=== PATIENT | male | born 1960 | race Caucasian/White ===

== ENCOUNTER → 2018-02-22 11:21 | Outpatient (CLI) | payer OTHER, SELFPAY ==
[2018-02-22 14:13] LABS: AST(SGOT) 23 U/L (15-37); Alanine Aminotransfer ALT/SGPT 46 U/L (16-61); Anion Gap 9 (5-15); BUN 14 mg/dL (7-18); BUN/Creat Ratio 14.3 RATIO (10-20); Chloride 106 mmol/L (98-107); Cholesterol 193 mg/dL (200); Creatinine, Serum 0.98 mg/dL (0.70-1.30); EST Glomerular Filtration Rate 83 mL/min (>60); Est Glom Filt Rate - Afr Amer 101 mL/min (>60); Glucose 90 mg/dL (74-106); High Density Lipoprotein 39 mg/dL; PSA,Total - Annual Screen 2.69 ng/mL (0.00-4.00); Potassium 4.6 mmol/L (3.5-5.1); Sodium Level 142 mmol/L (136-145); Triglycerides 130 mg/dL; Very Low Density Lipoprotein 26 mg/dL (5-40)
== END ==
PROVIDERS: Family Provider Family Medicine; PCP Family Medicine; Visit Provider Family Medicine
DX: Z00.00 Encounter for general adult medical examination without abnormal findings (principal); E78.5 Hyperlipidemia, unspecified; E16.2 Hypoglycemia, unspecified; Z12.5 Encounter for screening for malignant neoplasm of prostate
CPT/HCPCS: 36415; 80048; 80061; 84153; 84450; 84460; G0103

== ENCOUNTER → 2019-03-08 | Outpatient (CLI) | payer OTHER, SELFPAY ==
[2019-03-08 14:49] LABS: AST(SGOT) 25 U/L (15-37); Alanine Aminotransfer ALT/SGPT 38 U/L (16-61); Cholesterol 156 mg/dL (200); High Density Lipoprotein 37 mg/dL; PSA,Total - Annual Screen 2.18 ng/mL (0.00-4.00); Triglycerides 102 mg/dL; Very Low Density Lipoprotein 20 mg/dL (5-40)
== END | disposition home or self-care (01) ==
LOC: MFPLAB 11:23
PROVIDERS: Family Provider Family Medicine; PCP Family Medicine; Referring Provider Family Medicine; Visit Provider Family Medicine
DX: Z00.00 Encounter for general adult medical examination without abnormal findings (principal); E78.5 Hyperlipidemia, unspecified; Z12.5 Encounter for screening for malignant neoplasm of prostate
CPT/HCPCS: 36415; 80061; 84153; 84450; 84460; G0103

== ENCOUNTER → 2020-03-02 09:52 | Outpatient (CLI) | payer OTHER, SELFPAY ==
[2020-03-02 12:30] LABS: AST(SGOT) 27 U/L (15-37); Alanine Aminotransfer ALT/SGPT 37 U/L (16-61); Anion Gap 3 (5-15); BUN 18 mg/dL (7-18); BUN/Creat Ratio 15.8 RATIO (10-20); Calcium,Total 9.1 mg/dL (8.5-10.1); Chloride 110 mmol/L (98-107); Cholesterol 120 mg/dL (200); Creatinine, Serum 1.14 mg/dL (0.70-1.30); EST Glomerular Filtration Rate 69 mL/min (>60); Est Glom Filt Rate - Afr Amer 84 mL/min (>60); Glucose 85 mg/dL (74-106); High Density Lipoprotein 41 mg/dL; Potassium 4.1 mmol/L (3.5-5.1); Sodium Level 139 mmol/L (136-145); Triglycerides 82 mg/dL; Very Low Density Lipoprotein 16 mg/dL (5-40)
== END ==
PROVIDERS: PCP Family Medicine; Referring Provider Family Medicine; Visit Provider Family Medicine
DX: E78.5 Hyperlipidemia, unspecified (principal); E66.9 Obesity, unspecified
CPT/HCPCS: 36415; 80048; 80061; 84450; 84460

== ENCOUNTER → 2020-03-09 08:54 | Outpatient (CLI) | payer OTHER, SELFPAY ==
[2020-03-09 10:13] LABS: PSA,Total - Annual Screen 2.34 ng/mL (0.00-4.00)
== END ==
PROVIDERS: PCP Family Medicine; Referring Provider Family Medicine; Visit Provider Family Medicine
DX: Z12.5 Encounter for screening for malignant neoplasm of prostate (principal)
CPT/HCPCS: 36415; 84153; G0103

== ENCOUNTER 2020-07-10 15:59 | Outpatient (RCR) | payer MEDICARE, SELFPAY ==
[2020-07-10] MEDS: COVID-19 VACC, MRNA(PFIZER)/PF 30 MCG/0.3 ML SYRINGE IM (17:13)
[2020-07-31] MEDS: COVID-19 VACC, MRNA(PFIZER)/PF 30 MCG/0.3 ML SYRINGE IM (17:01)
== END 2020-10-02 23:59 ==
LOC: IMMUN 15:59
PROVIDERS: PCP Family Medicine; Visit Provider Family Medicine
DX: Z23 Encounter for immunization (principal)
CPT/HCPCS: 0001A; 0002A; 91300

== ENCOUNTER → 2021-03-04 16:08 | Outpatient (CLI) | payer OTHER, SELFPAY ==
[2021-03-04 18:10] LABS: AST(SGOT) 27 U/L (15-37); Alanine Aminotransfer ALT/SGPT 37 U/L (16-61); Cholesterol 145 mg/dL (200); High Density Lipoprotein 41 mg/dL; Triglycerides 84 mg/dL; Very Low Density Lipoprotein 17 mg/dL (5-40)
== END ==
PROVIDERS: PCP Family Medicine; Visit Provider Family Medicine
DX: E78.5 Hyperlipidemia, unspecified (principal)
CPT/HCPCS: 36415; 80061; 84450; 84460

== ENCOUNTER → 2022-03-07 | Outpatient (CLI) | payer OTHER, SELFPAY ==
[2022-03-07 18:06] LABS: AST(SGOT) 13 U/L (15-37); Alanine Aminotransfer ALT/SGPT 26 U/L (16-61); Cholesterol 135 mg/dL (200); High Density Lipoprotein 40 mg/dL; PSA,Total - Annual Screen 2.33 ng/mL (0.00-4.00); Triglycerides 88 mg/dL; Very Low Density Lipoprotein 18 mg/dL (5-40)
== END | disposition home or self-care (01) ==
LOC: MFPLAB 15:45
PROVIDERS: PCP Family Medicine; Referring Provider Family Medicine; Visit Provider Family Medicine
DX: E78.5 Hyperlipidemia, unspecified (principal); Z12.5 Encounter for screening for malignant neoplasm of prostate
CPT/HCPCS: 36415; 80061; 84153; 84450; 84460; G0103

== ENCOUNTER → 2023-03-03 | Outpatient (CLI) | payer OTHER, SELFPAY ==
[2023-03-03 18:07] LABS: AST(SGOT) 26 U/L (15-37); Alanine Aminotransfer ALT/SGPT 40 U/L (16-61); Cholesterol 166 mg/dL (200); High Density Lipoprotein 38 mg/dL; PSA,Total - Annual Screen 3.28 ng/mL (0.00-4.00); Triglycerides 99 mg/dL; Very Low Density Lipoprotein 20 mg/dL (5-40)
== END | disposition home or self-care (01) ==
LOC: MFPLAB 16:09
PROVIDERS: PCP Family Medicine; Visit Provider Family Medicine
DX: E78.5 Hyperlipidemia, unspecified (principal); Z12.5 Encounter for screening for malignant neoplasm of prostate
CPT/HCPCS: 36415; 80061; 84153; 84450; 84460; G0103

== ENCOUNTER → 2023-03-27 | Outpatient (CLI) | payer OTHER, SELFPAY | END | disposition home or self-care (01) | LOC: LABSPEC 15:58 | PROVIDERS: PCP Family Medicine; Referring Provider Surgery; Visit Provider Surgery | DX: Z01.818 Encounter for other preprocedural examination (principal) | CPT/HCPCS: 87081 ==

== ENCOUNTER 2023-05-08 08:00 | Outpatient (RCR) | payer OTHER, SELFPAY ==
--- NOTE | 2023-03-13 06:58 | HP.PTEVAL ---
Patient's Visit Information Visit Information Visit Information: SUMAN PIERSON is a 63 year old M referred to Physical Therapy by Dr. Norma Díaz MD with a diagnosis of . Date of Evaluation: Physical Therapist: Mojgan Doss PT, Cert MDT Anticipated Interventions Text: Thank you for the opportunity to evaluate your patient. For Medicare and Medicare HMO plans, please review the plan of care and approve it. It will need to be FAXED BACK to us at [phone] for Medicare purposes. For Medicare only, by signing this I certify the plan of care. Please let me know if there are questions or concerns regarding this plan of care. Physician Signature: Date:
--- NOTE | 2023-03-13 09:31 | HP.PTEVAL ---
Patient's Visit Information Visit Information Visit Information: SUMAN PIERSON is a 63 year old M referred to Physical Therapy by Dr. Norma Díaz MD with a diagnosis of Plantar Fasciitis. Date of Evaluation: 03/13/23 Physical Therapist: Mojgan Doss, PT, Cert MDT Visit Plan Frequency: 2-3x /Week Duration: 4-6 Weeks Plan: DECREASE PAIN AND INFLAMMATION WITH ICE AND US (50% 1.3 W/CM2). HS, CALF AND PLANTAR FASCIA STRETCHING WITH THER EX, JOINT MOBILIZATION AND STM TO DECREASE STRESS ON TISSUE. BALANCE AND STRENGTHENING EX'S TO RESTORE NORMAL MECHANICS OF L FOOT AND LEG. 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 L CALF PAIN, CRAMPS AND SPASMS. L HEEL NUMBNESS. Present since: NOV 2021 Pain Scale: WORST 7/10, LEAST 1/10 Currently: 2/10 Is it getting better, worse or staying the same: STAYING THE SAME Commenced as a result of: ACHILLES TENDON SURGERY - INACTIVE FOR MONTHS Symptoms at onset: HEEL PAIN Worse: WALKING ON HARD FLOORS/SURFACES, STANDING AND WORKING ON CONCRETE FLOORS, INITIATING GAIT IN AM AND AFTER SITTING. Better: WALKING ON SOFTER SURFACES, GETTING OFF OF IT AND STRETCHING IT. GEL CUPS, CERTAIN SHOES. (OTC AND CUSTOM ORTHOTICS HAVE NOT HELPED MUCH). Disturbed sleep: SOMETIMES Previous history/Previous treatment: NOV 2021 ACHILLES TENON SURGERY - TORE IT PULLING TREES. NO PT/REHAB AFTER SURGERY. WALKING BOOT, KNEE WALKER, CRUTCHES, ECT UNTIL ABOUT FEB 2023 (ABOUT 4 MONTHS). FOR ABOUT A YEAR PATIENT HAS BEEN DEALING WITH PAIN AND TRYING TO RECOVER. THAT IS WHEN HE NOTICED THE PAIN IN HIS HEEL. DR. HAYS DID THE SURGERY AND THEN DX'D HIM WITH PLANTAR FASCIITIS. Treatment this episode: HEEL CUPS AND PT REFERRAL Gait: Bowel or Bladder Dysfunction: Accidents: NO Unexplained weight loss: NO Imaging: NONE RECENT BUT DID HAVE PMH/Recent major surgery: HIGH CHOLESTEROL OTHER: HAD TO USE A SHOWER CHAIR TO SHOWER UNTIL ABOUT 2 MONTHS AGO AND THEN ABLE TO TRANSITION TO SHOWER SHOES TO TOLERATE STANDING. Objective Objective: THIS PATIENT AMBULATES INDEP'LY INTO PT WITH FAIR CADANCE AND A MILD LIMP ON THE L LE WITHOUT ANY AD'S OR LOB AND DECREASED HEEL STRIKE L LE. HE IS ABLE TO TRANSFER INDEP'LY FROM SIT TO STAND WITHOUT UE ASSIST. HE STANDS WITH ANTONIETTA FOOT PES CAVUS L > R . HE HAS VISIBLE L CALF ATROPHY. R LE STRENGTH AND ROM IS WFL. HE HAS MILD L CALF TIGHTNESS BUT OVER-ALL L ANKLE ROM IS GROSSLY SYMMETRICAL TO RIGHT. ANTONIETTA HS TIGHTNESS. L LE STRENGTH: HIP 4/5, KNEE 4/5, ANKLE 4/5, EHL 4/5. PALPATION: TENDERNESS WITH PALPATION OF ENTIRE L HEEL REGION BUT OTHERWISE INTO ARCH BUT OTHERWISE THE L FOOT IS NOT TENDER. TREATMENT: PATIENT WAS ENCOURAGED TO FOLLOW THROUGH WITH ROLLING FOOT OVER WATER BOTTLE OF ICE AT DIRECTED BY DR. DÍAZ AND ALSO INSTRUCTED IN REPEATED CALF STRETCHING X 10 TO 20 REPS EVER 1-2 HOURS THROUGHOUT THE DAY TOLERATED. PATIENT DEMONSTRATED/COMMUNICATED A GOOD UNDERSTANDING. Balance/Special Test Scores Lower Extremity Functional Score: 50 Goals Goal 1:: PATIENT WILL REPORT 50% DECREASED PAIN WITH WORK AND RECREATIONAL ACTIVITIES Goal Time Frame: 4-6 Weeks Goal 2:: PATIENTS LEFS SCORE WILL IMPROVE BY 10 POINTS TO SHOW IMPROVEMENT TOWARDS PLOF Goal Time Frame: 4-6 Weeks Goal 3:: PATIENT WILL HAVE INCREASED L LE STRENGTH TO 5/5 OF ALL EFFECTED MUSCULATURE. Goal Time Frame: 4-6 Weeks Goal 4:: PATIENT WILL BE ABLE TO STAND AND WALK FOR AT LEAST 60 MIN WITHOUT > 2/10 PAIN/NEEDING TO DONIS DOWN FOR INCREASED WORK AND RECREATIONAL TOLERANCE. Goal Time Frame: 4-6 Weeks Goal 5:: PATIENT WILL BE INDEP WITH AN APPROPRIATE HEP FOR CONTINUED IMPROVEMENT ONCE FORMAL PHYSICAL THERAPY CONCLUDES. Goal Time Frame: 4-6 Weeks Rehabilitation Potential Physical Therapy Diagnosis: L CALF AND HEEL PAIN. L ANKLE WEAKNESS. LLE STIFFNESS. IMPAIRED GAIT AND WEIGHT BEARING ACTIVITIES. Rehabilitation Potential: Good Anticipated Interventions Patient/Client Instruction: Educate patient on: Condition, Plan of Care and Risk Factors For the Purpose of:: To improve self management Therapeutic Exercise to Include: Strength training, Balance training, Flexibilty training, Gait and locomotor training and Neuromotor development For the Purpose of:: To decrease pain, To increase ROM, To improve muscle performance and motor function, To increase tolerance to activity/condition/position, To improve ability of physical actions for home/community/work/leisure and To improve gait and locomotor functions Manual Therapy Techniques to Include: Mobilization and Soft tissue mobilization For the Purpose of:: To decrease pain, To improve nutrient delivery to tissue and To decrease soft tissue restriction Cryotherapy (ice pack, ice massage): Yes Ultrasound (thermal/non thermal): Yes For the Purpose of:: To decrease pain and To decrease swelling/inflammation Text: Thank you for the opportunity to evaluate your patient. For Medicare and Medicare HMO plans, please review the plan of care and approve it. It will need to be FAXED BACK to us at [phone] for Medicare purposes. For Medicare only, by signing this I certify the plan of care. Please let me know if there are questions or concerns regarding this plan of care. Physician Signature: Date:
--- NOTE | 2023-04-10 16:50 | HP.PTREVAL ---
Re-Evaluation Intro: Dr. Norma íDaz MD, It has been my pleasure to treat SUMAN PIERSON over the last 9 visits for Left Plantar Fasciitis. Please see the progress note below for an update on the physical therapy plan of care! Subjective Subjective: I FEEL A LOT BETTER. THE PAIN HAS GONE DOWN IMMENSELY. NOW I CAN KEEP GOING AT THE END OF THE WORK DAY AND BEFORE I COULDN'T. PATIENT STATES HE HAS LESS PAIN, MORE FLEXIBILITY AND THE CRAMPING IS GONE. PATIENT REPORTS HE HAS TO GET OUT OF THE HABIT OF FAVORING IT BECAUSE IT DOESN'T HURT - IT'S JUST A HABIT. PATIENT REPORTS HE IS STILL STIFF IN THE MORNINGS BUT IT STRETCHES OUT AFTER ABOUT 5 TO 10 MINUTES. GETTING UP TO 2/10 PAIN AT WORK EVERY NOW AND AGAIN. PATIENT REPORTS HE CAN WALK MORE THAN AN HOUR NOW AND HE GETS TIRED BUT IT DOESN'T HAVE ANYTHING TO DO WITH HIS FOOT - HE STATES HE JUST HAS TO GET BACK IN SHAPE. STILL GETS STIFF AFTER PROLONGED SITTING TOO. Objective Objective/Function: PATIENT WAS SEEN TODAY FOR RE-ASSESSMENT OF PROGRESS TOWARD THE SET PT GOALS AND THE NEED FOR FURTHER PHYSICAL THERAPY VS READINESS FOR DISCHARGE. PATIENT IS MAKING GREAT PROGRESS WITH PT BUT CONTINUES TO HAVE SIGNIFICANT GAIT DEVIATION, DECREASED L FOOT/ANKLE PROPRIOCEPTION AND WEAKNESS. PATIENT IS UNABLE TO SLS ON THE LLE WITHOUT UE ASSIST WITH GOOD BALANCE AND HE IS UNABLE TO DO A SLS HEEL RAISE ON THE LEFT. HE IS A GOOD CANDIDATE TO CONTINUE PT FOR CORRECTIVE EX AND PROPRIOCEPTIVE TRAINING ALONG WITH MODALITIES NEEDED. HE IS AGREEABLE WITH THIS POC DECREASING TO 2 TIMES A WK AND CONTINUING TO PROGRESS HEP. Plan Plan Plan: CONT PT 2X'S A WK X 4-6 WKS FOR MODALITIS NEEDED. FOCUS ON NORMALIZING GAIT. HS, CALF, ANKLE AND PLANTAR FASCIA STRETCHING WITH THER EX, JOINT MOBILIZATION AND STM TO DECREASE STRESS ON TISSUE. BALANCE, PROPRIOCEPTION AND STRENGTHENING EX'S TO RESTORE NORMAL MECHANICS OF L LEG, FOOT AND ANKLE. Balance/Gait/Functional tests Balance/Special Test Scores Lower Extremity Functional Score: 50 Goals Goals Goal 1:: PATIENT WILL REPORT 50% DECREASED PAIN WITH WORK AND RECREATIONAL ACTIVITIES Goal Time Frame: 4-6 Weeks Goal Progress: Goal Met Goal 2:: PATIENTS LEFS SCORE WILL IMPROVE BY 10 POINTS TO SHOW IMPROVEMENT TOWARDS PLOF Goal Time Frame: 4-6 Weeks Goal Progress: Goal Met Goal 3:: PATIENT WILL HAVE INCREASED L LE STRENGTH TO 5/5 OF ALL EFFECTED MUSCULATURE. Goal Time Frame: 4-6 Weeks Goal Progress: Goal Met Goal 4:: PATIENT WILL BE ABLE TO STAND AND WALK FOR AT LEAST 60 MIN WITHOUT > 2/10 PAIN/NEEDING TO DONIS DOWN FOR INCREASED WORK AND RECREATIONAL TOLERANCE. Goal Time Frame: 4-6 Weeks Goal Progress: Goal Met Goal 5:: PATIENT WILL BE INDEP WITH AN APPROPRIATE HEP FOR CONTINUED IMPROVEMENT ONCE FORMAL PHYSICAL THERAPY CONCLUDES. Goal Time Frame: 4-6 Weeks Goal Progress: Goal Met Goal 6:: NORMALIZE GAIT PATTERN Goal Time Frame: 4-6 Weeks Anticipated Interventions Anticipated Interventions Patient/Client Instruction: Educate patient on: Condition, Plan of Care and Risk Factors For the Purpose of:: To improve self management Therapeutic Exercise to Include: Strength training, Balance training, Flexibilty training, Gait and locomotor training and Neuromotor development For the Purpose of:: To decrease pain, To increase ROM, To improve muscle performance and motor function, To increase tolerance to activity/condition/position, To improve ability of physical actions for home/community/work/leisure and To improve gait and locomotor functions Manual Therapy Techniques to Include: Mobilization and Soft tissue mobilization For the Purpose of:: To decrease pain, To improve nutrient delivery to tissue and To decrease soft tissue restriction Cryotherapy (ice pack, ice massage): Yes Ultrasound (thermal/non thermal): Yes For the Purpose of:: To decrease pain and To decrease swelling/inflammation Re-Evaluation Ending Re-evaluation ending: Please do not hesitate to contact me at [phone] by phone or if you have questions or concerns regarding this new plan of care! Sincerely, Mojgan Doss, PT, Cert MDT
--- NOTE | 2023-05-08 12:23 | HP.PTDCSUM ---
Discharge Summary D/C summary: It has been my pleasure to treat SUMAN PIERSON referred by Dr. Norma Díaz MD, with the diagnosis of Left Plantar Fasciitis for a total of 17 visit(s). Discharge Date: 05/08/23 Please see the following information for a summary of their discharge status. Subjective Subjective: MY PAIN LEVEL IS ALMOST DOWN TO NOTHING. PATIENT REPORTS NOW HE FEELS LIKE HE CAN GET BACK INTO WALKING FOR EXERCISE AND GET BACK IN SHAPE BECAUSE HE'S NOT IN PAIN. Pain Left Heel: Pain Intensity (Out of 10): 0 Overall Improvement % Improvement: 90 Objective Objective/Function: PATIENT WAS SEEN TODAY FOR RE-ASSESSMENT OF PROGRESS TOWARD THE SET PT GOALS AND THE NEED FOR FURTHER PHYSICAL THERAPY VS READINESS FOR DISCHARGE. HE HAS MADE GREAT PROGRESS WITH PT AND HIS GAIT IS STARTING TO NORMALIZE BUT HE STILL HAS SIGNIFICANT L CALF WEAKNESS. HE IS UNABLE TO RAISE HIS L HEEL IN SLS AT ALL FOR ONE REP WITH KNEE BENT OR STRAIGHT BUT IS ABLE TO FULLY PLANTAR FLEX HIS FOOT AGAINST GRB AND PARTIALLY PF AGAINST BTB WITH KNEE BENT AND STRAIGHT. L KNEE FLEXIONG GRADED 4/5. INSTRUCTED PATIENT IN HOME GTB PF WITH KNEE BENT AND STRAIGHT 3X10 ONCE A DAY WORKING UP TO BTB 3X10 ONCE A DAY AND SAME WITH SEATED L KNEE FLEXION. PATIENT IS CONSIDERING HP MEMBERSHIP FOR CONTINUED STRENGTHENIGN. EXPLAINED IMPORTANCE OF PF STRENGTH IN GAIT MECHANICS AND HOW WEAKNESS CAN EFFECT KNEE, HIP AND BACK. PATIENT COMMUNICATED A GOOD UNDERSTANDING AND IS INDEP WITH HEP. PATIENT DEMO'S INDEP GAIT UP AND DOWN STEPS RECIP WITHOUT HR WITH MILD DEVIATION. Goals Goal 1:: PATIENT WILL REPORT 50% DECREASED PAIN WITH WORK AND RECREATIONAL ACTIVITIES Goal Progress: Goal Met Goal 2:: PATIENTS LEFS SCORE WILL IMPROVE BY 10 POINTS TO SHOW IMPROVEMENT TOWARDS PLOF Goal Progress: Goal Met Goal 3:: PATIENT WILL HAVE INCREASED L LE STRENGTH TO 5/5 OF ALL EFFECTED MUSCULATURE. Goal Progress: Goal Met Goal 4:: PATIENT WILL BE ABLE TO STAND AND WALK FOR AT LEAST 60 MIN WITHOUT > 2/10 PAIN/NEEDING TO DONIS DOWN FOR INCREASED WORK AND RECREATIONAL TOLERANCE. Goal Progress: Goal Met Goal 5:: PATIENT WILL BE INDEP WITH AN APPROPRIATE HEP FOR CONTINUED IMPROVEMENT ONCE FORMAL PHYSICAL THERAPY CONCLUDES. Goal Progress: Goal Met Goal 6:: NORMALIZE GAIT PATTERN Goal Progress: Progressing Plan Plan: D/C TO INDEP EX. PATIENT IS AGREEABLE. D/C Information d/c sentence: If there are questions or concerns regarding this patient's physical therapy, please feel free to call me at [phone]. Thank you for the referral of this patient. Sincerely, Mojgan Doss, PT, Cert MDT Balance/Gait/Functional tests Balance/Special Test Scores Lower Extremity Functional Score: 62 Improvement % Improvement: 90
== END 2023-05-08 19:00 | disposition home or self-care (01) ==
LOC: PT 08:00
PROVIDERS: PCP Family Medicine; Referring Provider Family Medicine; Visit Provider Family Medicine
DX: M72.2 Plantar fascial fibromatosis (principal)
CPT/HCPCS: 97035; 97110; 97140; 97162; 97164; 97530

== ENCOUNTER 2023-05-11 10:58 | Day surgery (SDC) | payer OTHER, SELFPAY ==
[2023-05-11] VITALS (8 sets, daily range): BP systolic 137–167; BP diastolic 70–108; PULSE 64–85; RESP 16–18; TEMP 36.1–37.1; O2SAT 93–98; BMI 33.3
[2023-05-11] MEDS: Lactated Ringers 1,000 ML 15 ML IV (11:38)
--- NOTE | 2023-05-11 12:01 | PCM.OPRPT ---
Report of Operation Date of Procedure: 05/11/23 Pre-Operative Diagnosis: Umbilical hernia Post-Operative Diagnosis: Fat?incarcerated umbilical hernia Surgery/Procedure Performed:: Robot-assisted transabdominal preperitoneal hernia repair with mesh Description of Surgical Findings:: ? 2 cm hernia defect with incarcerated fat Surgeon: London Holliday steel plate caulker: Adelita Vázquez Type of Anesthesia: General/Supplemental Anesthesiologist: Jeramie Mccann Specimen's removed: None Estimated Blood Loss (mL): 10 Description of Procedure: After appropriate identification in the preoperative holding area, the patient was brought to the operating room suite where he was positioned supine the operating table. Preoperative antibiotics were administered. Patient was then induced with a general anesthetic. Patient's abdomen was prepped and draped in the usual sterile fashion. A formal timeout followed to confirm patient and procedure. Procedure was begun with a Veress entry at Castillo's point. Once the set point pressure was reached, this Veress needle was exchanged for an optical trocar and an optical entry was made in this location. Laparoscopic investigation revealed no inadvertent injury to the viscera below. 2 additional 8 mm robotic trochars were placed along the abdominal wall laterally taking care to avoid the bony prominences of the costal margin and the ASIS. A transversus abdominis plane block was created with a mixture of saline, Exparel, and Marcaine using a total of 78 mL mL under laparoscopic vision as these ports were placed. The robot was then brought in and docked in standard fashion. Robotically a peritoneal flap was raised approximately 2 cm medial from my trocars and carried this away towards the contralateral abdominal wall. Great care was taken to lower the peritoneum off of the posterior rectus sheath and avoid any rents in the peritoneal flap. Perforating vessels were sealed with bipolar energy to maintain hemostasis as this flap dissection proceeded. I then addressed the hernia directly by opening the scar tissue about the hernia sac and carefully applying manual traction downward until the hernia was fully reduced. The flap was then further dissected laterally until it appeared we had adequate width. The hernia defect was measured at 2 cm in diameter and I did confirm we had at least 5 cm of clearance to the remaining intact peritoneum with our dissected flap opening. The hernia defect was then closed with a #1 stratafix suture by running the fascial defect closed and then running the suture back upon itself. Next a 10 x 10 (trimmed) Ventralight ST mesh was introduced into the peritoneum and a 3-0 V-Loc suture was used to chandelier the mesh. This V-Loc suture was then run towards the operating side of the opening and then circumferentially about the mesh with a total of 3X 3-0 V-Loc sutures. Lastly the peritoneum was closed with 3-0 V-Loc suture. A small peritoneal rent was repaired with an interrupted 3-0 Vicryl suture in a [id number] fashion and patient's adjacent hernia sac was tacked in front of this opening for further reinforcement. The robot was then undocked and the trocars were removed. Additional local anesthetic was instilled and the port sites were closed with interrupted 4-0 Monocryl in subcuticular fashion. Steri-Strips and OpSite dressings were applied. Patient was transferred to PACU for ongoing care. Grafts/Implants Used: Ventralight ST mesh, ref [id number], lot [id number] Complications None Admit VTE Documentation VTE Mechan Device Prophylaxis: SCD's Procedures Digestive 40xxx-49xxx: 98011 RPR AA HRN 1ST < 3 CM RDC
--- NOTE | 2023-05-11 12:01 | PCM.HP.BLA ---
History and Physical Date of Admission: 05/11/23 Date of Service: 03/27/23 MR#: [id number] Acct: [id number] Name: SUMAN PIERSON Rep #: [id number] : [id number] Provider: Dr. London Holliday MD Age/Sex: 63/M Location: [facility] Status: Signed Intake Vital Signs 03/27/2313:26 Height 5 ft 7 in Weight: 232 lb 2 oz BMI 36.3 BP 145/90 H Blood Pressure Location Rt brachial Position Sitting Respiration 18 Pulse 62 Pulse Source Monitor Temp 97.6 F L Temp Source Temporal Pulse Oximetry (%) 96 Oxygen Delivery Method room air Intake Visit Reasons: UMBILICAL HERNIA Chief Complaint: umbilical hernia Machine Grinder Required: No Is patient in pain?: No Allergies No Known Allergies Allergy (Unverified 03/27/23 13:28) Medications glucosamine sulfate 500 mg tablet (Glucosamine) 500 mg PO DAILY 03/27/23 [History Confirmed 03/27/23] simvastatin 20 mg tablet mg PO 03/27/23 [History Confirmed 03/27/23] ubidecarenone-omega 3-vit E 25 mg-150 (90-60) mg-200 unit capsule (Co [id number] E-Fish Oil) 1 cap PO DAILY 03/27/23 [History Confirmed 03/27/23] PFSH Surgical History (Updated 03/27/23 @ 13:26 by Britany Mccurdy LPN) S/P Achilles tendon repair S/P vasectomy Social History (Updated 03/27/23 @ 13:26 by Britany Mccurdy LPN) Smoking Status: Never smoker alcohol intake: current alcohol intake frequency: holidays/special occasions only substance use type: does not use HPI HPI HPI: Patient is a 63-year-old male who presents for evaluation of an umbilical hernia. This finding was first noticed by patient approximately 2 to 3 years ago. Patient is not able to recall how this occurred. He is referred from Dr. Norma Díaz. He shares that this issue is discussed that there are yearly exams, however, he does decided to proceed with surgical evaluation now as it has become unsightly and he is concerned about complication. To this latter point he does confirm some growth of the hernia as well as some discomfort when carrying things directly against the hernia. Other symptoms include: No change to his bowel habits (but he does admit to constipation as a lifelong problem). Patient has a personal history of smoking. Patient has no personal history of recurrent cutaneous infections including staph. Pertinent surgical history includes: Noncontributory ROS General General: Yes weight change (gain) Gastro Gastrointestinal: Yes abdominal pain Exam Const General: cooperative, comfortable and no acute distress Orientation: alert, awake and oriented x3 GI Other: No scars, nondistended, soft, visible herniation at the umbilicus. On palpation there is significant protrusion of fatty tissue (suspected omental tissue). This is easily reduced to the peritoneum to a fascial defect of approximately 2 cm Assessment and Plan Assessment and Plan (1) Umbilical hernia: Status: Chronic Comment: This is a 63-year-old male, with minimal past medical history, who presents for evaluation of a minimally symptomatic, but enlarging umbilical hernia. On exam, patient does have some discomfort from this hernia which is estimated at approximately 2 cm in diameter fascial defect. At this size, shared with patient that it is at risk for potential bowel involvement which could lead to either obstruction or bowel incarceration/strangulation. Therefore, I do recommend proceeding with operative repair sooner than later. I offered patient either open hernia repair with mesh placement or minimally invasive repair with mesh placement. I shared the pros and cons of each procedure and Mr. Pierson states that he does a fair amount of physical activity and wishes to have the most durable repair available. Upon hearing this declaration I have recommended that we proceed then with a minimally invasive hernia repair with mesh. Procedure was described in detail?including the postoperative expectation of no lifting greater than 10 pounds for 5 weeks?and patient expresses understanding. Additionally, I have informed him that I would like to obtain a nasal swab to assess for any staph colonization of the nares and shared the importance of this intervention. Plan: ? Schedule outpatient robot-assisted umbilical hernia repair with mesh placement via Deirdre approach ? MRSA screening H&P has been reviewed and patient denies any changes to his health history. He denies any questions related to today's procedure, but proceeded with reviewing procedure and post procedure expectations anyhow to be sure all terms were clearly communicated. Will now proceed to OR for planned robot-assisted umbilical hernia repair with mesh.
[2023-05-11] MEDS: Cefazolin 2 GM in 0.9% Normal Saline (100mL Bag) 100 ML IV (12:23)
[2023-05-11] MEDS: BUPIVACAINE LIPOSOME/PF 20 ML VIAL OPERA.SITE (15:21)
[2023-05-11] MEDS: Bupivacaine 0.25% 30 ML Vial (15:22)
[2023-05-11] MEDS: 0.9% Normal Saline (Pres. free 10 ML Vial (15:22)
--- NOTE | 2023-05-11 15:24 | DCINST_ITS ---
Discharge Instructions Diet Discharge Diet: No restrictions Activity Discharge Activity: May Not Drive (While taking narcotic pain medication) and May Shower May shower in (days): 2 Ice area for (Minutes): 20 Lifting Restrictions: No lifting greater than 10 pounds for the next 5 weeks Dressing / Incision Call your doctor if your incision/area has: Continuous Slow Oozing, Increased Pain/ Swelling, Increased Redness, Foul Smelling Discharge and Swelling at the incision site Call your doctor if you observe: Fever of 101 or Higher, Inability to urinate and Inability to have a bowel movement Change Dressing in: 2 days (Please leave Steri-Strips intact until they fall off spontaneously or are taken off at your follow-up visit) Remove Dressing in: 2 days Cleanse incision/area with: Soap & Water and Keep Dressing Clean & Dry Follow Up Care Please Follow Up With: London Holliday MD When: 1-2 weeks postop Test Results: Test results from this visit will be discussed in further detail at your follow- up appointment, if applicable. Discharge Plan Admission Primary Reason for Your Visit: Repair of umbilical hernia Attending Provider: London Holliday Primary Care Provider: Norma Díaz Discharge Orders/Prescriptions Prescriptions: New oxycodone 5 mg tablet 5 mg PO Q6H PRN (Reason: pain) 5 Days Qty: 10 0RF Continued simvastatin 20 mg tablet 20 mg PO QHS Co [id number]-[id number] E-Fish Oil 25-150-200 mg-mg-unit capsule 1 cap PO DAILY glucosamine sulfate [Glucosamine] 500 mg tablet 500 mg PO DAILY Rx Instructions: administer with a meal Referrals / Follow Up: Norma Díaz MD [Primary Care Provider] - Disposition Disposition (needs filled in before D/C Order can be placed): Home, Self Care
== END 2023-05-11 17:41 | disposition home or self-care (01) ==
LOC: SDC 11:03 → AC 11:03
PROVIDERS: PCP Family Medicine; Referring Provider Surgery; Visit Provider Surgery
PROC: (CPT 49592; principal; 2023-05-11 12:05)
DX: K42.9 Umbilical hernia without obstruction or gangrene (principal); E78.00 Pure hypercholesterolemia, unspecified; Z79.899 Other long term (current) drug therapy
CPT/HCPCS: 49592; S2900; 00840; 93005; J7120; C1781; J2405; J3490

== ENCOUNTER → 2024-02-08 | Outpatient (CLI) | payer OTHER, SELFPAY ==
[2024-02-08 13:20] LABS: AST(SGOT) 24 U/L (15-37); Alanine Aminotransfer ALT/SGPT 37 U/L (16-61); Cholesterol 175 mg/dL (200); High Density Lipoprotein 40 mg/dL; Triglycerides 125 mg/dL; Very Low Density Lipoprotein 25 mg/dL (5-40)
== END | disposition home or self-care (01) ==
LOC: MFPLAB 09:57
PROVIDERS: PCP Family Medicine; Visit Provider Family Medicine
DX: E78.5 Hyperlipidemia, unspecified (principal); Z12.5 Encounter for screening for malignant neoplasm of prostate
CPT/HCPCS: 36415; 80061; 84443; 84450; 84460

== ENCOUNTER → 2024-02-19 | Outpatient (CLI) | payer OTHER, SELFPAY ==
--- NOTE | 2024-02-19 12:49 | RAD_ITS ---
EXAM: XR RIGHT FOOT COMPLETE, 3 OR MORE VIEWS CLINICAL INDICATION: gout TECHNIQUE: Frontal, lateral and oblique views of the right foot. COMPARISON: January 15, 2012. FINDINGS: BONES/JOINTS: Unremarkable with the exception of possibly slight stable narrowing of the first MTP joint. No acute fracture. No subluxation. No periarticular cortical erosions Normal alignment. Preservation of the joint space. No sclerotic or destructive changes observed. SOFT TISSUES: Unremarkable. No soft tissue swelling or gas. No radiopaque foreign body. RAD/Foot min 3 Views IMPRESSION: Negative right foot x-rays. Electronically Signed: Delia Del Real MD at 2:33 EDT ,
[2024-02-19 15:31] LABS: ALB/GLOB Ratio 1.1 RATIO (0.9-2.4); AST(SGOT) 19 U/L (15-37); Alanine Aminotransfer ALT/SGPT 38 U/L (16-61); Alkaline Phosphatase 76 U/L (45-117); Anion Gap 3 (5-15); BUN 21 mg/dL (7-18); BUN/Creat Ratio 19.4 RATIO (10-20); Calcium,Total 9.6 mg/dL (8.5-10.1); Chloride 108 mmol/L (98-107); Creatinine, Serum 1.08 mg/dL (0.70-1.30); EST Glomerular Filtration Rate 73 mL/min (>60); Est Glom Filt Rate - Afr Amer 88 mL/min (>60); Globulin 3.6 g/dL (2.2-4.2); Glucose 107 mg/dL (74-106); Potassium 4.3 mmol/L (3.5-5.1); Protein, Total 7.6 g/dL (6.4-8.2); Sodium Level 137 mmol/L (136-145); Uric Acid 6.5 mg/dL (3.5-7.2)
== END | disposition home or self-care (01) ==
PROVIDERS: PCP Family Medicine; Referring Provider Family Medicine; Visit Provider Family Medicine
DX: M10.9 Gout, unspecified (principal)
CPT/HCPCS: 36415; 73630; 80053; 84550

== ENCOUNTER → 2025-03-02 | Outpatient (CLI) | payer BC, SELFPAY ==
--- OUTSIDE RECORDS SUMMARY | 2025-03-02 16:35 | XMS RPT_ITS | CCD ---
Author Organization [facility] CliniSyal Care Team Providers Care Is/It Project Manager Name Role Phone NEHAL MIN, DR BALLESTEROS Primary Care Physician [phone] Medications Current Medications Medication Drug Class(es) Dates Sig (Normalized) Sig (Original) simvastatin 20 mg oral tablet (1 source) HMG-CoA Reductase Inhibitor Start: 04-04-2016 Zocor 20 mg oral tablet (NF) Dose : 20 mg = 1 tab(s), Oral, qHS, 0 Refill(s) Start Date: 04/04/16 Status: Ordered Vital Signs Date Time Vital Sign Value Performing Clinician Edin elliott 11-28-2021 08:45-0400 Diastolic Blood Pressure NBP 72 1 VALENTE SUPPAN DPM [facility] 11-28-2021 08:45-0400 Heart rate 66 /min VALENTE SUPPAN DPM [facility] 11-28-2021 08:45-0400 Systolic Blood Pressure NBP 111 1 VALENTE SUPPAN DPM [facility] 11-28-2021 08:40-0400 Diastolic Blood Pressure NBP 77 1 VALENTE SUPPAN DPM [facility] 11-28-2021 08:40-0400 Heart rate 61 /min VALENTE SUPPAN DPM [facility] 11-28-2021 08:40-0400 Systolic Blood Pressure NBP 104 1 VALENTE SUPPAN DPM [facility] 11-28-2021 08:35-0400 Diastolic Blood Pressure NBP 74 1 VALENTE SUPPAN DPM [facility] 11-28-2021 08:35-0400 Heart rate 65 /min VALENTE SUPPAN DPM [facility] 11-28-2021 08:35-0400 Systolic Blood Pressure NBP 105 1 VALENTE SUPPAN DPM [facility] 11-28-2021 08:25-0400 Respiratory rate 0 /min VALENTE SUPPAN DPM [facility] 11-28-2021 08:20-0400 Respiratory rate 13 /min VALENTE SUPPAN DPM [facility] 11-28-2021 08:15-0400 Respiratory rate 12 /min VALENTE SUPPAN DPM [facility] 11-28-2021 07:11-0400 Body height 170.2 cm VALENTE SUPPAN DPM [facility] 11-28-2021 06:53-0400 Body height 170.2 cm VALENTE SUPPAN DPM [facility] 11-28-2021 06:53-0400 Body temperature 97.16 [degF] VALENTE SUPPAN DPM [facility] 11-28-2021 06:53-0400 Body weight 98.5 kg VALENTE SUPPAN DPM [facility] 11-28-2021 06:53-0400 Diastolic blood pressure 87 mm[Hg] VALENTE SUPPAN DPM [facility] 11-28-2021 06:53-0400 Heart rate 72 /min VALENTE SUPPAN DPM [facility] 11-28-2021 06:53-0400 Systolic blood pressure 126 mm[Hg] VALENTE HAYS DPM [facility] Encounters Encounter Date Encounter Type Care Provider Facility Start: 11-28-2021 End: 11-28-2021 SAME DAY STAY VALENTE HAYS DPM [facility] Social History Date Type Detail Facility Tobacco smoking status Never smo ked tobacco (finding) [facility] Sex Assigned At Male [facility] Functional Status Date Assessment Result Facility 11-28-2021 Functional Status ice on [facility] 11-28-2021 Functional Status Maintained [facility] Mental Status Date Assessment Result Facility 11-28-2021 Mental Status Orientation Oriented x 4 [facility] 11-28-2021 Mental Status [facility] Evaluation + Plan note 11-28-2021 Note Date & Type Note Facility 11-28-2021 Evaluation + Plan note Extrac janna from: Title:Clinical Document Author:VALENTE HAYS PM Date:11/28/21 ONSET ADMISSION HISTORY AN D PHYSICIAL CHIEF COMPLAINT: HISTORY OF PRESENT ILLNESS: REVIEW OF SYSTEMS: ACTIVE PROBLEMS: No qualifying data available for Problems MEDICATIONS: Active Inpt Meds: cefOXitin Start: 11/28/21 6:24:00 EDT, Dose = 1 gram(s), IV Piggyback, PREOP pharm, Rate: 200 mL/hr, Infuse over: 30 minute(s), 0, 11/28/21 6:24:00 EDT Active PRN Meds: None One Time Meds: None Active IV Meds: Lactated Ringers Infusion 1,000 mL (LR 1,000 mL) Start: 11/28/21 6:24:00 EDT, Rate: 125 mL/hr, 11/28/21 6:24:00 EDT ALLERGIES: (1) [facility] FAMILY HISTORY: SOCIAL HISTORY: PHYSICAL EXAM: VITALS: [id number](kg) 11/28 06:5336.2126/[id number]--62.0L/m08 98.5 24 Hr Tmax: 36.2 at 11/28 06:53 36 Hr Tmax: 36.2 at 11/28 06:53 Vital Signs are the last 5 in the past 48 hours. Weights display the last 5 within 7 days. Initial Wt: 11/28 98.5 kg 217 lb Current Wt: 11/28 98.5 kg 217 lb GENERAL: HEENT: CARDIOVASCULAR: RESPIRATORY: ABDOMEN: EXREMETIES: NEUROLOGICAL: PSYCHIATRIC: LABS: No 36hr Lab Data DIAGNOSTICS: IMPRESSION: PLAN: History and Physical Update I have examined the patient; reviewed the H&P and there are no changes to the H&P unless noted below. [facility] Hospital Discharge instructions 11-28-2021 Note Date & Type Note Facility 11-28-2021 Hospital Discharg e instructions Patient Education 11/28/2021 08:47:09 Monitored Anesthesia Care, Care After Monitored Anesthesia Care, Care After These instructions provide you with information about caring for yourself after your procedure. Your health care provider may also give you more specific instructions. Your treatment has been planned according to current medical practices, but problems sometimes occur. Call your health care provider if you have any problems or questions after your procedure. What can I expect after the procedure? After your procedure, you may: Feel sleepy for several hours. Feel clumsy and have poor balance for several hours. Feel forgetful about what happened after the procedure. Have poor judgment for several hours. Feel nauseous or vomit. Have a sore throat if you had a breathing tube during the procedure. Follow these instructions at home: For at least 24 hours after the procedure: Have a responsible adult stay with you. It is important to have someone help care for you until you are awake and alert. Rest as needed. Do not: ?Participate in activities in which you could fall or become injured. ?Drive. ?Use heavy machinery. ?Drink alcohol. ?Take sleeping pills or medicines that cause drowsiness. ?Make important decisions or sign legal documents. ?Take care of children on your own. Eating and drinking Follow the diet that is recommended by your health care provider. If you vomit, drink water, juice, or soup when you can drink without vomiting. Make sure you have little or no nausea before eating solid foods. General instructions Take hhrd-mrq-hivwiqg and prescription medicines only as told by your health care provider. If you have sleep apnea, surgery and certain medicines can increase your risk for breathing problems. Follow instructions from your health care provider about wearing your sleep device: ?Anytime you are sleeping, including during daytime naps. ?While taking prescription pain medicines, sleeping medicines, or medicines that make you drowsy. If you smoke, do not smoke without supervision. Keep all follow-up visits as told by your health care provider. This is important. Contact a health care provider if: You keep feeling nauseous or you keep vomiting. You feel light-headed. You develop a rash. You have a fever. Get help right away if: You have trouble breathing. Summary For several hours after your procedure, you may feel sleepy and have poor judgment. Have a responsible adult stay with you for at least 24 hours or until you are awake and alert. This information is not intended to replace advice given to you by your health care provider. Make sure you discuss any questions you have with your health care provider. Document Released: 08/03/2016 Document Revised: 07/12/2018 Document Reviewed: 08/03/2016 [employer] Patient Education 2020 [employer]. 11/28/2021 08:47:01 Achilles Tendon Tear Repair, Care After Achilles Tendon Tear Repair, Care After This sheet gives you information about how to care for yourself after your procedure. Your health care provider may also give you more specific instructions. If you have problems or questions, contact your health care provider. What can I expect after the procedure? After the procedure, it is common to have: Numbness in your foot. This should go away within 24 hours. Pain. It may take 6 months before you can return to your regular activity level. However, complete recovery can take a year or longer. Follow these instructions at home: Medicines Take aiik-aiy-bztzomw and prescription medicines only as told by your health care provider. If you were prescribed an antibiotic medicine, take it as told by your health care provider. Do not stop taking the antibiotic even if your condition improves. Ask your health care provider if the medicine prescribed to you: ?Requires you to avoid driving or using heavy machinery. ?Can cause constipation. You may need to take these actions to prevent or treat constipation: ?Drink enough fluid to keep your urine pale yellow. ?Take lict-coh-wskuyby or prescription medicines. ?Eat foods that are high in fiber, such as beans, whole grains, and fresh fruits and vegetables. ?Limit foods that are high in fat and processed sugars, such as fried and sweet foods. If you have a splint or boot: Wear the splint or boot as told by your health care provider. Remove it only as told by your health care provider. Loosen it if your toes tingle, become numb, or turn cold and blue. Keep it clean and dry. If you have a cast: Do not put pressure on any part of the cast until it is fully hardened. This may take several hours. Do not stick anything inside the cast to scratch your skin. Doing that increases your risk of infection. Check the skin around the cast every day. Tell your health care provider about any concerns. You may put lotion on dry skin around the edges of the cast. Do not put lotion on the skin underneath the cast. Keep it clean and dry. Bathing Do not take baths, swim, or use a hot tub until your health care provider approves. Ask your health care provider if you may take showers. You may only be allowed to take sponge baths. If the splint, boot, or cast is not waterproof: ?Do not let it get wet. ?Cover it with a watertight covering when you take a bath or a shower. Incision care Follow instructions from your health care provider about how to take care of your incision. Make sure you: ?Wash your hands with soap and water before and after you change your bandage (dressing). If soap and water are not available, use hand line out man. ?Change your dressing as told by your health care provider. ?Leave stitches (sutures) or silvina in place. These skin closures may need to stay in place for 2 weeks or longer. If you have a removable splint or boot, check your incision area every day for signs of infection. Check for: ?More redness, swelling, or pain. ?Fluid or blood. ?Warmth. ?Pus or a bad smell. Managing pain, stiffness, and swelling If directed, put ice on the injured area. To do this: ?If you have a removable splint or boot, remove it as told by your health care provider. ?Put ice in a plastic bag. ?Place a towel between your skin and the bag or between your cast and the bag. ?Leave the ice on for 20 minutes, 2 3 times a day. Move your toes often to reduce stiffness and swelling. Raise (elevate) your leg above the level of your heart while you are sitting or lying down. Activity Do not walk on or put weight on your injured leg. Use crutches or another walking aid, such as a walking boot. Follow instructions from your health care provider on how to move your ankle and how much weight you can put on your leg. If you have a cast, boot, or splint, you should receive these instructions after it is removed. Follow your rehab plan. Do exercises as told by your health care provider or physical therapist. Do not return to physical activity or sports until you are cleared by your health care provider or physical therapist. General instructions Ask your health care provider when it is safe to drive if you have a splint, boot, or cast on your leg. See a physical therapist if directed by your health care provider. Do not use any products that contain nicotine or tobacco, such as cigarettes, e-cigarettes, and chewing tobacco. These can delay incision healing after surgery. If you need help quitting, ask your health care provider. Keep all follow-up visits as told by your health care provider. This is important. If you have a cast or splint, your health care provider will remove it about 2 weeks after surgery. If you have sutures, they will also be removed during this time. Contact a health care provider if: You have chills. You have any of these signs of infection: ?More redness, swelling, or pain around your incision. ?Fluid or blood coming from your incision. ?Warmth coming from your incision. ?Pus or a bad smell coming from your incision. ?A fever. Your pain medicine is not working. You have persistent numbness, tingling, or burning in your foot or toes. Your splint, boot, or cast feels too tight, even after loosening the splint or boot. You cannot wiggle your toes. You notice cracks or soft spots on your cast. Get help right away if: You have severe swelling, pain, or numbness that is getting worse. You are bleeding through your splint, boot, or cast. You have chest pain. You have trouble breathing. Summary After your procedure, it is common to have pain and numbness in your foot. Numbness should go away within 24 hours after surgery. If you have a splint or boot, loosen it if your toes tingle, become numb, or turn cold and blue. Keep the splint or boot clean and dry. If you have a cast, do not put pressure on it until it hardens. To avoid infections, do not stick objects under the cast to scratch the skin and do not put lotion under the cast. Keep the cast clean and dry. Follow instructions about caring for your incision, avoiding some activities, taking medicines, and keeping follow-up visits. This information is not intended to replace advice given to you by your health care provider. Make sure you discuss any questions you have with your health care provider. Document Released: 12/17/2004 Document Revised: 09/21/2019 Document Reviewed: 09/21/2019 [employer] Patient Education 2020 [employer]. Follow Up Care 11/27/2021 08:28:34 With:VALENTE HAYS DPM, Surgery Address: [address] [place], [place] [address], [address] [facility] [place], [place] [address]- When:12/03/2021 14:30:00 [facility] Summary of episode note 11-28-2021 Note Date & Type Note Facility 11-28-2021 Summary of episode note Discharge Instructions Thank you for allowing [facility] to assist you with your healthcare needs. The following is important discharge information regarding your hospital visit. Your Care Team LESLI CALVERT MD What to do next Follow Up Appointments Follow Up with VALENTE HAYS DPM, Surgery When 12/03/2021 02:30 PM EDT Where: [facility] [place], [address] [facility] [place], [place] [id number]- The Following Activity and Diet Have Been Ordered for You Discharge Activity - Ordered -- Other, Follow the post-operative/post-procedure activity instructions provided by your physician's office., 11/28/21 8:42:00 EDT No qualifying data available. The Following Equipment Has Been Ordered for You Discharge Home Equipment Discharge Wound Care - Ordered -- Follow the post-operative/post-procedure wound care instructions provided by your physician's office., 11/28/21 8:42:00 EDT Allergies [facility] Medications Please ask your primary doctor or pharmacist before taking any other medication not listed, including over the counter drugs, herbal medications, vitamins and or supplements as they may interact with your home medications. What How Much When Instructions Last Dose Unchanged simvastatin (Zocor 20 mg oral tablet (NF)) 1 tab(s) by mouth Daily at bedtime Please take this list to your next doctor s visit. Bring all medications you take, including over the counter medications, herbals and other supplements with you to your doctor s visit. Patients and families are reminded to discard old lists and to update any records with all medication providers or retail pharmacies. Medication Leaflets oxycodone (ox i KOE done) Oxaydo, OxyCONTIN, Oxyfast, OxyIR, Roxicodone, Xtampza ER What is the most important information I should know about oxycodone? MISUSE OF OPIOID MEDICINE CAN CAUSE ADDICTION, OVERDOSE, OR . Keep the medication in a place where others cannot get to it. Taking opioid medicine during may cause life-threatening withdrawal symptoms in the . Fatal side effects can occur if you use opioid medicine with alcohol, or with other drugs that cause drowsiness or slow your breathing. What is oxycodone? Oxycodone is an opioid pain medication used to treat moderate to severe pain. The extended-release form of oxycodone is for tgsiik-mfz-igfvy treatment of pain and should not be used on an as-needed basis for pain. Oxycodone may also be used for purposes not listed in this medication guide. What should I discuss with my healthcare provider before using oxycodone? You should not use oxycodone if you are allergic to it, or if you have: severe asthma or breathing problems; or a blockage in your stomach or intestines. You should not use oxycodone unless you are already using a similar opioid medicine and are tolerant to it. Most brands of oxycodone are not approved for use in people under 18. OxyContin should not be given to a child younger than 11 years old. Tell your doctor if you have ever had: breathing problems, sleep apnea; a head injury, or seizures; drug or alcohol addiction, or mental illness; liver or kidney disease; urination problems; or problems with your gallbladder, pancreas, or thyroid. If you use opioid medicine while you are , your baby could become dependent on the drug. This can cause life-threatening withdrawal symptoms in the baby after it is born. Babies born dependent on opioids may need medical treatment for several weeks. Ask a doctor before using opioid medicine if you are . Tell your doctor if you notice severe drowsiness or slow breathing in the nursing baby. How should I use oxycodone? Follow the directions on your prescription label and read all medication guides. Never use oxycodone in larger amounts, or for longer than prescribed. Tell your doctor if you feel an increased urge to take more of this medicine. Never share opioid medicine with another person, especially someone with a history of drug abuse or addiction. MISUSE CAN CAUSE ADDICTION, OVERDOSE, OR . Keep the medication in a place where others cannot get to it. Selling or giving away opioid medicine is against the law. Stop taking all other qfzpjs-mmj-vctkn opioid pain medicines when you start taking extended-release oxycodone. Take oxycodone with food. Swallow the capsule or tablet whole to avoid exposure to a potentially fatal overdose. Do not crush, chew, break, open, or dissolve. If you cannot swallow a capsule whole, open it and sprinkle the medicine into a spoonful of pudding or applesauce. Swallow the mixture right away without chewing. Do not save it for later use. Never crush or break an oxycodone pill to inhale the powder or mix it into a liquid to inject the drug into your vein. This can cause in . Measure liquid medicine carefully. Use the dosing syringe provided, or use a medicine dose-measuring device (not a kitchen spoon). You should not stop using oxycodone suddenly. Follow your doctor's instructions about tapering your dose. Store at room temperature, away from heat, moisture, and light. Keep track of your medicine. Oxycodone is a drug of abuse and you should be aware if anyone is using your medicine improperly or without a prescription. Do not keep leftover opioid medication. Just one dose can cause in someone using this medicine accidentally or improperly. Ask your pharmacist where to locate a drug take-back disposal program. If there is no take-back program, flush the unused medicine down the toilet. What happens if I miss a dose? Since oxycodone is used for pain, you are not likely to miss a dose. Skip any missed dose if it is almost time for your next dose. Do not use two doses at one time. What happens if I overdose? Seek emergency medical attention or call the Poison Help line at . An opioid overdose can be fatal, especially in a child or other person using the medicine without a prescription. Overdose symptoms may include severe drowsiness, pinpoint pupils, slow breathing, or no breathing. Your doctor may recommend you get naloxone (a medicine to reverse an opioid overdose) and keep it with you at all times. A person caring for you can give the naloxone if you stop breathing or don't wake up. Your caregiver must still get emergency medical help and may need to perform CPR (cardiopulmonary resuscitation) on you while waiting for help to arrive. Anyone can buy naloxone from a pharmacy or local health department. Make sure any person caring for you knows where you keep naloxone and how to use it. What should I avoid while using oxycodone? Do not drink alcohol. Dangerous side effects or could occur. Avoid driving or operating machinery until you know how oxycodone will affect you. Dizziness or severe drowsiness can cause falls or other accidents. Avoid medication errors. Always check the brand and strength of oxycodone you get from the pharmacy. What are the possible side effects of oxycodone? Get emergency medical help if you have signs of an allergic reaction: hives; difficult breathing; swelling of your face, lips, tongue, or throat. Opioid medicine can slow or stop your breathing, and may occur. A person caring for you should give naloxone and/or seek emergency medical attention if you have slow breathing with long pauses, blue colored lips, or if you are hard to wake up. Call your doctor at once if you have: noisy breathing, sighing, shallow breathing, breathing that stops during sleep; a slow heart rate or weak pulse; a light-headed feeling, like you might pass out; confusion, unusual thoughts or behavior; seizure (convulsions); low cortisol levels-- nausea, vomiting, loss of appetite, dizziness, worsening tiredness or weakness; or high levels of serotonin in the body--agitation, hallucinations, fever, sweating, shivering, fast heart rate, muscle stiffness, twitching, loss of coordination, nausea, vomiting, diarrhea. Serious breathing problems may be more likely in older adults and in those who are debilitated or have wasting syndrome or chronic breathing disorders. Common side effects may include: drowsiness, headache, dizziness, tiredness; or constipation, stomach pain, nausea, vomiting. This is not a complete list of side effects and others may occur. Call your doctor for medical advice about side effects. You may report side effects to FDA at 9-055-EKA-7259. What other drugs will affect oxycodone? You may have breathing problems or withdrawal symptoms if you start or stop taking certain other medicines. Tell your doctor if you also use an antibiotic, antifungal medication, heart or blood pressure medication, seizure medication, or medicine to treat HIV or hepatitis C. Opioid medication can interact with many other drugs and cause dangerous side effects or . Be sure your doctor knows if you also use: cold or allergy medicines, bronchodilator asthma/COPD medication, or a diuretic ('water pill'); medicines for motion sickness, irritable bowel syndrome, or overactive bladder; other opioids--opioid pain medicine or prescription cough medicine; a sedative like Valium--diazepam, alprazolam, lorazepam, Xanax, Klonopin, Versed, and others; drugs that make you sleepy or slow your breathing--a sleeping pill, muscle relaxer, medicine to treat mood disorders or mental illness; or drugs that affect serotonin levels in your body--a stimulant, or medicine for depression, Parkinson's disease, migraine headaches, serious infections, or nausea and vomiting. This list is not complete and many other drugs may affect oxycodone. This includes prescription and cozu-kzj-jduhuat medicines, vitamins, and herbal products. Not all possible drug interactions are listed here. Where can I get more information? Your pharmacist can provide more information about oxycodone. Remember, keep this and all other medicines out of the reach of children, never share your medicines with others, and use this medication only for the indication prescribed. Every effort has been made to ensure that the information provided by [employer]. ('[employer]') is accurate, up-to-date, and complete, but no guarantee is made to that effect. Drug information contained herein may be time sensitive. [employer] information has been compiled for use by healthcare practitioners and consumers in the [place] and therefore [employer] does not warrant that uses outside of the [place] are appropriate, unless specifically indicated otherwise. [facility] [employer] [facility] drug information does not endorse drugs, diagnose patients or recommend therapy. [employer] drug information is an informational resource designed to assist licensed healthcare practitioners in caring for their patients and/or to serve consumers viewing this service as a supplement to, and not a substitute for, the expertise, skill, knowledge and judgment of healthcare practitioners. The absence of a warning for a given drug or drug combination in no way should be construed to indicate that the drug or drug combination is safe, effective or appropriate for any given patient. [employer] does not assume any responsibility for any aspect of healthcare administered with the aid of information [employer] provides. The information contained herein is not intended to cover all possible uses, directions, precautions, warnings, drug interactions, allergic reactions, or adverse effects. If you have questions about the drugs you are taking, check with your doctor, nurse or pharmacist. Copyright 7419-5231 [employer]. Version: 14.02. Revision Date: 05/24/2020. Education Materials Monitored Anesthesia Care, Care After These instructions provide you with information about caring for yourself after your procedure. Your health care provider may also give you more specific instructions. Your treatment has been planned according to current medical practices, but problems sometimes occur. Call your health care provider if you have any problems or questions after your procedure. What can I expect after the procedure? After your procedure, you may: Feel sleepy for several hours. Feel clumsy and have poor balance for several hours. Feel forgetful about what happened after the procedure. Have poor judgment for several hours. Feel nauseous or vomit. Have a sore throat if you had a breathing tube during the procedure. Follow these instructions at home: For at least 24 hours after the procedure: Have a responsible adult stay with you. It is important to have someone help care for you until you are awake and alert. Rest as needed. Do not: ? Participate in activities in which you could fall or become injured. ? Drive. ? Use heavy machinery. ? Drink alcohol. ? Take sleeping pills or medicines that cause drowsiness. ? Make important decisions or sign legal documents. ? Take care of children on your own. Eating and drinking Follow the diet that is recommended by your health care provider. If you vomit, drink water, juice, or soup when you can drink without vomiting. Make sure you have little or no nausea before eating solid foods. General instructions Take uaxq-kys-zciywxd and prescription medicines only as told by your health care provider. If you have sleep apnea, surgery and certain medicines can increase your risk for breathing problems. Follow instructions from your health care provider about wearing your sleep device: ? Anytime you are sleeping, including during daytime naps. ? While taking prescription pain medicines, sleeping medicines, or medicines that make you drowsy. If you smoke, do not smoke without supervision. Keep all follow-up visits as told by your health care provider. This is important. Contact a health care provider if: You keep feeling nauseous or you keep vomiting. You feel light-headed. You develop a rash. You have a fever. Get help right away if: You have trouble breathing. Summary For several hours after your procedure, you may feel sleepy and have poor judgment. Have a responsible adult stay with you for at least 24 hours or until you are awake and alert. This information is not intended to replace advice given to you by your health care provider. Make sure you discuss any questions you have with your health care provider. Document Released: 08/03/2016 Document Revised: 07/12/2018 Document Reviewed: 08/03/2016 [employer] Patient Education 2020 [employer] Achilles Tendon Tear Repair, Care After This sheet gives you information about how to care for yourself after your procedure. Your health care provider may also give you more specific instructions. If you have problems or questions, contact your health care provider. What can I expect after the procedure? After the procedure, it is common to have: Numbness in your foot. This should go away within 24 hours. Pain. It may take 6 months before you can return to your regular activity level. However, complete recovery can take a year or longer. Follow these instructions at home: Medicines Take qjuk-bqi-cazhxgh and prescription medicines only as told by your health care provider. If you were prescribed an antibiotic medicine, take it as told by your health care provider. Do not stop taking the antibiotic even if your condition improves. Ask your health care provider if the medicine prescribed to you: ? Requires you to avoid driving or using heavy machinery. ? Can cause constipation. You may need to take these actions to prevent or treat constipation: ? Drink enough fluid to keep your urine pale yellow. ? Take ohqm-ajp-plexfiq or prescription medicines. ? Eat foods that are high in fiber, such as beans, whole grains, and fresh fruits and vegetables. ? Limit foods that are high in fat and processed sugars, such as fried and sweet foods. If you have a splint or boot: Wear the splint or boot as told by your health care provider. Remove it only as told by your health care provider. Loosen it if your toes tingle, become numb, or turn cold and blue. Keep it clean and dry. If you have a cast: Do not put pressure on any part of the cast until it is fully hardened. This may take several hours. Do not stick anything inside the cast to scratch your skin. Doing that increases your risk of infection. Check the skin around the cast every day. Tell your health care provider about any concerns. You may put lotion on dry skin around the edges of the cast. Do not put lotion on the skin underneath the cast. Keep it clean and dry. Bathing Do not take baths, swim, or use a hot tub until your health care provider approves. Ask your health care provider if you may take showers. You may only be allowed to take sponge baths. If the splint, boot, or cast is not waterproof: ? Do not let it get wet. ? Cover it with a watertight covering when you take a bath or a shower. Incision care Follow instructions from your health care provider about how to take care of your incision. Make sure you: ? Wash your hands with soap and water before and after you change your bandage (dressing). If soap and water are not available, use hand line out man. ? Change your dressing as told by your health care provider. ? Leave stitches (sutures) or silvina in place. These skin closures may need to stay in place for 2 weeks or longer. If you have a removable splint or boot, check your incision area every day for signs of infection. Check for: ? More redness, swelling, or pain. ? Fluid or blood. ? Warmth. ? Pus or a bad smell. Managing pain, stiffness, and swelling If directed, put ice on the injured area. To do this: ? If you have a removable splint or boot, remove it as told by your health care provider. ? Put ice in a plastic bag. ? Place a towel between your skin and the bag or between your cast and the bag. ? Leave the ice on for 20 minutes, 2 3 times a day. Move your toes often to reduce stiffness and swelling. Raise (elevate) your leg above the level of your heart while you are sitting or lying down. Activity Do not walk on or put weight on your injured leg. Use crutches or another walking aid, such as a walking boot. Follow instructions from your health care provider on how to move your ankle and how much weight you can put on your leg. If you have a cast, boot, or splint, you should receive these instructions after it is removed. Follow your rehab plan. Do exercises as told by your health care provider or physical therapist. Do not return to physical activity or sports until you are cleared by your health care provider or physical therapist. General instructions Ask your health care provider when it is safe to drive if you have a splint, boot, or cast on your leg. See a physical therapist if directed by your health care provider. Do not use any products that contain nicotine or tobacco, such as cigarettes, e-cigarettes, and chewing tobacco. These can delay incision healing after surgery. If you need help quitting, ask your health care provider. Keep all follow-up visits as told by your health care provider. This is important. If you have a cast or splint, your health care provider will remove it about 2 weeks after surgery. If you have sutures, they will also be removed during this time. Contact a health care provider if: You have chills. You have any of these signs of infection: ? More redness, swelling, or pain around your incision. ? Fluid or blood coming from your incision. ? Warmth coming from your incision. ? Pus or a bad smell coming from your incision. ? A fever. Your pain medicine is not working. You have persistent numbness, tingling, or burning in your foot or toes. Your splint, boot, or cast feels too tight, even after loosening the splint or boot. You cannot wiggle your toes. You notice cracks or soft spots on your cast. Get help right away if: You have severe swelling, pain, or numbness that is getting worse. You are bleeding through your splint, boot, or cast. You have chest pain. You have trouble breathing. Summary After your procedure, it is common to have pain and numbness in your foot. Numbness should go away within 24 hours after surgery. If you have a splint or boot, loosen it if your toes tingle, become numb, or turn cold and blue. Keep the splint or boot clean and dry. If you have a cast, do not put pressure on it until it hardens. To avoid infections, do not stick objects under the cast to scratch the skin and do not put lotion under the cast. Keep the cast clean and dry. Follow instructions about caring for your incision, avoiding some activities, taking medicines, and keeping follow-up visits. This information is not intended to replace advice given to you by your health care provider. Make sure you discuss any questions you have with your health care provider. Document Released: 12/17/2004 Document Revised: 09/21/2019 Document Reviewed: 09/21/2019 [employer] Patient Education 2020 [employer] Additional Information VACCINATE! IT SAVES LIVES! Members of the community who have not yet received the COVID-19 vaccine and would like to receive it can visit one of [facility] vaccine clinics. There are many vaccine clinic locations within the [facility]. For locations and available times, please visit [email or web address].wii o.[email or web address] It is important to note that some COVID mobile vaccine clinics are held outdoors and may be canceled in rainy or stormy conditions. To learn more about pediatric vaccinations (ages 5-11), we invite you to visit the [facility] webpage. [email or web address]/pag [email or web address]-[email or web address]-[email or web address] lv-Vypfy-Chlvcuegz.html To learn more about the COVID-19 vaccine, we invite you to visit the [employer] website for a list of frequently asked questions. [email or web address] ently_[email or web address].pdf [facility] Patient Portal Access Instructions: Stay connected with your healthcare team and access your personal medical information anytime with the [facility] Patient Portal.If you would like a full copy of your medical records, please contact the [facility] Medical Records Department, Thursday through Thursday between 8a.m. and 4:30p.m. Please follow the directions below to access the portal: 1.Access the email account you provided upon registration to the [facility].2.Look for an invitation email from [facility].3.Open the email and access the invitation link: Accept Invitation to [facility]4.Fill in the required campbell to create your account. Sign into [email or web address] with your username and password that you created in the above steps to stay up to date. You can then view a summary of results, a summary of your visits, and the ability to download your summaries to your computer or send the information securely to a physician. Remember that your healthcare information is confidential, so carefully consider who you will allow to register on the [facility] Patient Portal for access to your information. You can also access the [employer] Patient Portal on the [employer] arturo. Simply click on "Health Records" under "Health Data" and then click on the [employer] logo. HOW TO SAFELY DISPOSE OF PRESCRIPTION MEDICATIONS Please use one of the following methods to safely dispose of your unused medications. 1.Use a drug disposal kit: the drug disposal pouch allows you to safely discard your old and unused drugs. Ask your nurse to give you one when you are discharged.2.Visit a local take-back location: Many local pharmacies and police departments have programs that collect old and unwanted prescription drugs. Call your local pharmacy or go to http://bit.ly/3Z5Wy4g to find one close to you.3.Make use of household items: Use cat litter or old coffee grounds to dispose medications if other options are not available. Mix your drugs with these household products, seal them in an airtight container and throw it into the garbage. Call [facility]: [phone] to be sure your drugs can be disposed of in this way. Some medicines may require a different approach.4.Never flush your medications down the toilet. IF YOU HAVE BEEN PRESCRIBED AN OPIOID FOR PAIN If you have been prescribed an opioid (such as hydrocodone, oxycodone or morphine), it is critical to understand the possible side effects and risks of opioid pain medications. Even when taken as directed, opioids can have several side effects including: Tolerance, meaning you might need to take more of a medication for the same pain relief. Nausea, vomiting and/or constipation. Sleepiness, dizziness, dry mouth, confusion, depression or itching. Physical dependence, meaning you have withdrawal symptoms when a medication is stopped, can develop within a few days. KNOW YOUR RESPONSIBILITIES It is important to know exactly how much and how often to take the opioid pain medications you are prescribed. Never take opioids in higher amounts or more often than prescribed. Do not combine opioids with alcohol or other drugs that cause drowsiness, such as benzodiazepines, also known as benzos, including diazepam and alprazolam, muscle relaxants or sleep aids. Never sell or share prescription opioids. This is illegal. Store opioids in a secure place and out of reach of others (including children, family, friends and visitors). The last page of this document has been signed and retained as a CHART COPY. Signatures Patient Education Materials Monitored Anesthesia Care, Care After Achilles Tendon Tear Repair, Care After Medication Leaflets [employer] My discharge plan and instructions have been reviewed and explained to me and IKENNA DOUGLAS E understand my current condition and have read and understand these discharge instructions. I have received a written copy of the plan/instructions. If I have questions, I am aware that I should contact my doctor. 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 Respiratory function: lungs are clear to auscultation. Respiratory support: none. CV function: Normal rate. Cardiovascular support: none. Pain. Nausea status: denies nausea. Postoperative hydration status: within normal limits. Digitally Signed by BESS MUÑOZ on 11/28/2021 08:37 AM [facility] Anesthesiology Consult note 11-28-2021 Note Date & Type Note Facility 11-28-2021 Anesthesiology Consult note Patient: SUMAN PIERSON Age: 61 years Sex: Male : 1960 Associated Diagnoses: None Author: BESS MUÑOZ Preoperative Information Time of last food or liquid consumption: 11/28/2021 00:00:00 Anesthesia history Patient's history: negative. Family's history: negative. Review of Systems Ear/Nose/Mouth/Throat: Negative. Respiratory: Negative. Cardiovascular: Negative. Gastrointestinal: Negative, obese. Genitourinary: Negative. Endocrine: Negative. Musculoskeletal: Negative. Integumentary: Negative. Neurologic: Negative. Health Status Allergies: Allergic Reactions (Selected) NKA, Allergies (1) ActiveReaction NKANone Documented Current medications: (Selected) Inpatient Medications Ordered LR 1,000 mL: 125 mL/hr, Intravenous cefOXitin: 1 gram(s), 200 mL/hr, IV Piggyback, PREOP pharm Documented Medications Documented Zocor 20 mg oral tablet (NF): 20 mg, 1 tab(s), Oral, qHS, 0 Refill(s), Medications (2) Active Scheduled: (1) ceFOXitin 1 gram(s), IV Piggyback, PREOP pharm Continuous: (1) Lactated Ringers 1,000 mL 1,000 mL, Intravenous, 125 mL/hr PRN: (0) Problem list: No qualifying data available Histories Past Medical History: Resolved Hypoglycemia ([id number]): Resolved. Hypercholesteremia ([id number]): Resolved. Family History: Lymphoma (clinical) Father Procedure history: No active procedure history items have been selected or recorded. Social History Social & Psychosocial Habits No Data Available . Physical Examination Vital Signs 11/28/2021 7:50 EDT Heart Rate Monitored 67 bpm bpm Respiratory Rate 11 br/min br/min Systolic Blood Pressure NBP 107 mmHg mmHg Diastolic Blood Pressure NBP 73 mmHg mmHg 11/28/2021 7:45 EDT Heart Rate Monitored 68 bpm bpm Respiratory Rate 3 br/min br/min Systolic Blood Pressure NBP 103 mmHg mmHg Diastolic Blood Pressure NBP 78 mmHg mmHg 11/28/2021 6:53 EDT Temperature Temporal Artery 36.2 DegC Apical Heart Rate 72 bpm Respiratory Rate 12 br/min LOW Systolic Blood Pressure 126 mmHg Diastolic Blood Pressure 87 mmHg Vital Signs(last 24 hrs) Last Charted Heart Rate Slurcluzb26 bpm (NOV 28 07:50) Resp Rate 11 br/min (NOV 28 07:50) ZJO805 mmHg (NOV 28 07:50) DBP73 mmHg (NOV 28 07:50) Measurements from flowsheet : Measurements 11/28/2021 7:11 EDT Height 170.2 cm [place] Body Weight 66.12 kg 11/28/2021 6:53 EDT Height 170.2 cm Admission Weight 98.5 kg [place] Body Weight 66.12 kg Admission Body Mass Index 34 m2 Pain assessment: Pain Assessment 11/28/2021 6:53 EDT Primary Pain Location Ankle Primary Pain Laterality Left Primary Pain Intensity 2 Pain Scale Type 0-10 Pain scale . General: Alert and oriented. Airway: Normal temporomandibular joint mobility. Mallampati classification: II (soft palate, fauces, uvula visible). Head: Normocephalic. Dentition Evaluation: Own teeth. Neck: Supple. Respiratory: Lungs are clear to auscultation. Cardiovascular: Normal rate. Heart Sounds: Normal. Gastrointestinal: Soft. Musculoskeletal Normal range of motion. Integumentary: Intact. Neurologic: Alert, Oriented. Review / Management Results review: No qualifying data available , Lab results 11/28/2021 7:50 EDT Heart Rate Monitored 67 bpm bpm Respiratory Rate 11 br/min br/min Systolic Blood Pressure NBP 107 mmHg mmHg Diastolic Blood Pressure NBP 73 mmHg mmHg Oxygen Saturation 94.6 % % 11/28/2021 7:45 EDT Heart Rate Monitored 68 bpm bpm Respiratory Rate 3 br/min br/min Systolic Blood Pressure NBP 103 mmHg mmHg Diastolic Blood Pressure NBP 78 mmHg mmHg Oxygen Saturation 95.2 % % 11/28/2021 7:43 EDT fentaNYL 50 mcg mcg lidocaine 20 mg mg 11/28/2021 7:38 EDT SN - OK - Route of Administration Local SN - OK - By (Single) SN - OK - By (Single) 11/28/2021 7:37 EDT SN - CTm - Anesthesia Start Time Anesthesia Start midazolam 2 mg mg 11/28/2021 7:33 EDT SN - Proc - Actual Procedure REPAIR ACHILLES TENDON LEFT 11/28/2021 7:20 EDT SN - SP - Prep Agents Chloraprep SN - SP - HR - Method N/A 11/28/2021 7:18 EDT SN - PP - Body Position Prone Standard Intra-op 11/28/2021 7:18 EDT [place] History and Physical 11/28/2021 7:15 EDT SN - PTCare - Anti-thromboembolism Vivian Sequential Compression Device (SCD) 11/28/2021 7:15 EDT SN - Preop - CTm Pt Ready for OR/Proced 11/28/2021 7:15 11/28/2021 7:15 EDT SN - Preop - CTm Pt in SDS Room 11/28/2021 6:43 11/28/2021 7:14 EDT SN - Assess - LOC Alert, Awake SN - Assess - Orientation Oriented X 3 SN - Assess - Post-op Skin Integrity Intact/Dry 11/28/2021 7:14 EDT SN - GCD - Post-operative Diagnosis RUPTURED ACHILLES TENDON, LEFT SN - GCD - Case Level Level 2 11/28/2021 7:14 EDT SN - Cul - Culture Type No Specimen per Surgeon 11/28/2021 7:14 EDT Lactated Ringers Injection Begin Bag 1,000 mL mL 11/28/2021 7:13 EDT SN - CAt - Case Attendee SN - CAt - Case Attendee SN - CAt - Case Attendee SN - CAt - Case Attendee SN - CAt - Case Attendee SN - CAt - Case Attendee SN - CAt - Case Attendee SN - CAt - Case Attendee SN - CAt - Case Attendee SN - CAt - Case Attendee SN - CAt - Role Performed Primary Surgeon SN - CAt - Role Performed CONSULTING NURSE SN - CAt - Role Performed Scrub 1 SN - CAt - Role Performed Animal Shelter Clerk 1 SN - CAt - Role Performed Retail Cashier Associate 1 11/28/2021 7:11 EDT Designated Person #1 We May Share MALISSA BARONE [phone] Designated Person #1 Relationship Spouse Height 170.2 cm [place] Body Weight 66.12 kg Status N/A Sensory Deficits None Infectious Disease Symptoms Patient states no symptoms Infectious Disease Recent Exposure No Alcohol and Drug Use No Employee of Institutional Living No Health Care Employee No History of Exposure to TB No History of Positive Chest X-Ray for TB No History of Positive TB Skin Test No Homeless No Known Immunosuppression No Recent Immigrant No Resident of Institutional Living No Bloody Sputum No Fatigue No Fever No Loss of Appetite No Night Sweats No Persistent Cough > 3 Weeks No Weight Loss No Barriers to Learning None evident Teaching Method Explanation, Printed materials Preferred Written Language Grenadian Preferred Spoken Language Grenadian Information Given by Patient Patient's Current Physicians .Dr. Steele Discharge To, Anticipated Home with family care Prev Test Positive/Diagnosis w/COVID-19 No Current Quarantine/Isolated any Illness No Any Contact with Sick Animals/Birds No Traveled Anywhere in Last 30 Days No N/A Personal Devices, Patient Valuables Glasses Admission Note-Nursing Procedure/Therapy Intake 11/28/2021 6:53 EDT Height 170.2 cm Admission Weight 98.5 kg [place] Body Weight 66.12 kg Admission Body Mass Index 34 m2 Temperature Temporal Artery 36.2 DegC Apical Heart Rate 72 bpm Respiratory Rate 12 br/min LOW Systolic Blood Pressure 126 mmHg Diastolic Blood Pressure 87 mmHg Primary Pain Location Ankle Primary Pain Laterality Left Primary Pain Intensity 2 Pain Scale Type 0-10 Pain scale Nail Bed Color Snyder Capillary Refill < 2 seconds Heart Sounds ICU S1S2 Heart Rhythm Regular All Lobes Breath Sounds Clear Oxygen Therapy Room air Oxygen Flow Rate 95 Abdomen Description Non-distended Abdomen Palpation Non-Tender Bowel Sounds All Quadrants Present Urinary Elimination Voiding with difficulties Skin Temperature Warm Skin Description Snyder, Dry Skin Integrity Intact Mucous Membrane Color Snyder IV Present Present Continuous IV Infusions LR Hand Left 11/28/2021 20 gauge Peripheral IV Activity: Insert new site Peripheral IV Dressing Condition: Clean, Dry, Intact Peripheral IV Dressing Activity: Applied, Transparent dressing Peripheral IV Line Status/Patency: Continuous infusion Peripheral IV Site Condition: No complications Peripheral IV Equipment: Extension set, PRN Adaptor Peripheral IV Number of Attempts: 1 Characteristics of Speech Clear Level of Consciousness Alert Strength All Extremities Strong Tone All Extremities Normal Affect/Behavior Appropriate, Calm, Cooperative Orientation Oriented x 4 Allergies No Vp [employer] On Yes Colon Prep Results N/A Consent Form Signed Yes Patient Dressed In Hospital gown History & Physical Update On Chart Yes History & Physical On Chart Yes Obstructive Sleep Apnea Assess Completed Yes Orientation Assessment Oriented x 4 Belongings At Bedside Glasses, Shirt, Shoes, Shorts, Undergarments Belongings Sent Home None Belongings Sent To Security None Activity Status ADL Awake Assistive Device Wheelchair SCD On/Re-applied right knee high NPO Status Maintained Standard Safety ID band on, Bed in low position, Wheels locked, Non-Slip footwear Allergy Band on and Verified No Blood Band on and Verified No Patient ID Band on and Verified Yes Implants Verified Yes Pacemaker/AICD Verified Yes Anesthesia Consent Signed Yes Blood Consent Signed Yes Last Fluid Intake 11/28/2021 6:00 Last Food Intake 11/27/2021 19:30 Last Void 11/28/2021 6:30 . Assessment and Plan [place] [employer] (ASA) physical status classification: Class II. Anesthetic Preoperative Plan Premedication: intravenous. Anesthetic technique: MAC. Induction: intravenously. Maintenance airway: NC. Postoperative pain management: Per surgeon. Informed consent: signed by patient. Digitally Signed by BESS MUÑOZ on 11/28/2021 08:02 AM [facility] Clinical Note 11-28-2021 Note Date & Type Note Facility 11-28-2021 Note [facility] ADMISSION HISTORY AND PHYSICIAL CHIEF COMPLAINT: HISTORY OF PRESENT ILLNESS: REVIEW OF SYSTEMS: ACTIVE PROBLEMS: No qualifying data available for Problems MEDICATIONS: Active Inpt Meds: cefOXitin Start: 11/28/21 6:24:00 EDT, Dose = 1 gram(s), IV Piggyback, PREOP pharm, Rate: 200 mL/hr, Infuse over: 30 minute(s), 0, 11/28/21 6:24:00 EDT Active PRN Meds: None One Time Meds: None Active IV Meds: Lactated Ringers Infusion 1,000 mL (LR 1,000 mL) Start: 11/28/21 6:24:00 EDT, Rate: 125 mL/hr, 11/28/21 6:24:00 EDT ALLERGIES: (1) NKA FAMILY HISTORY: SOCIAL HISTORY: PHYSICAL EXAM: VITALS: [id number](k g) 11/28 06:5336.2126/[id number]--55.0L/m011/28 98.5 24 Hr Tmax: 36.2 at 11/28 06:53 36 Hr Tmax: 36.2 at 11/28 06:53 Vital Signs are the last 5 in the past 48 hours. Weights display the last 5 within 7 days. Initial Wt: 11/28 98.5 kg 217 lb Current Wt: 11/28 98.5 kg 217 lb GENERAL: HEENT: CARDIOVASCULAR: RESPIRATORY: ABDOMEN: EXREMETIES: NEUROLOGICAL: PSYCHIATRIC: LABS: No 36hr Lab Data DIAGNOSTICS: IMPRESSION: PLAN: History and Physical Update I have examined the patient; reviewed the H&P and there are no changes to the H&P unless noted below. Digitally Signed by VALENTE HAYS DPM on 11/28/2021 07:18 AM [facility] course Narrative Note Date & Type Note Facility Hospital course Narrative No data available for this section [facility] Additional Source Comments Care Team (unrecognized sect ion and content) Care Team Personnel Name: LESLI CALVERT MD Member Role: Primary Care Physician Address: Address: [address] [place] [address] Care Team Related Persons Name: LIZABETH PIERSON FOR RECORDS PERTAINING TO PATIENTS WHO ARE OR HAVE BEEN ENROLLED IN A CHEMICAL DEPENDENCY/SUBSTANCEABUSE PROGRAM, SOME INFORMATION MAY BE OMITTED. This clinical summary was aggregated from multiple sources. Caution should be exercised in using it in the provision of clinical care. This summary normalizes information from multiple sources, and as a consequence, information in this document may materially change the coding, format and clinical context of patient data. In addition, data may be omitted in some cases. CLINICAL DECISIONS SHOULD BE BASED ON THE PRIMARY CLINICAL RECORDS. [facility] provides no warranty or guarantee of the accuracy or completeness of information in this document.
[2025-03-02 17:53] LABS: Hematocrit 48.7 % (40-54); Hemoglobin 16.7 g/dL (13.0-16.5); Immature Granulocytes Count 0.040 X10^3/uL (0.0-0.0); Mean Corp Hgb Conc 34.3 g/dL (32-36); Mean Corpuscular Volume 87.3 fL (80-94); Mean Platelet Vol. 10.4 fl (6.2-12.0); NRBC Flagged by Analyzer 0 % (0-5); Platelet Count 244 K/mm3 (150-450); RBC Distribution Width CV 12.1 % (11.6-14.6); RBC Distribution Width SD 38.8 fl (35.1-43.9); Red Blood Count 5.58 M/mm3 (4.6-6.2); White Blood Count 9.4 K/mm3 (4.4-11.0)
[2025-03-02 18:10] LABS: AST(SGOT) 29 U/L (<=37); Alanine Aminotransfer ALT/SGPT 34 U/L (<=46); Albumin, Serum 4.5 g/dL (3.4-4.8); Alkaline Phosphatase 65 U/L (40-129); Anion Gap 11 (5-15); BUN 16 mg/dL (4-19); BUN/Creat Ratio 14.7 RATIO (10-20); Calcium,Total 9.8 mg/dL (7.6-11.0); Carbon Dioxide 26.6 mmol/L (21.0-32.0); Chloride 103 mmol/L (98-108); Cholesterol 185 mg/dL (<=200); Globulin 3.1 g/dL (2.2-4.2); Glucose 97 mg/dL (70-99); Low Density Lipoprotein Calc. 122 mg/dL; PSA,Total - Annual Screen 2.87 ng/mL (0.02-4.00); Potassium 4.5 mmol/L (3.3-5.1); Triglycerides 134 mg/dL; Very Low Density Lipoprotein 27 mg/dL (5-40); cholesterol:hdl ratio screen 4.82
[2025-03-03 10:24] LABS: Ferritin 297 ng/mL (37-417); Iron 124 ug/dL (65-175); Iron Binding Capacity,Total 363 ug/dL (250-450); Iron Binding Capacity,Unsat 239 ug/dL (228-428)
[2025-03-04 08:09] LABS: Transferrin 314 mg/dL (177-329)
== END | disposition home or self-care (01) ==
LOC: MFPLAB 16:16
PROVIDERS: PCP Family Medicine; Visit Provider Family Medicine
DX: Z00.00 Encounter for general adult medical examination without abnormal findings (principal); E78.5 Hyperlipidemia, unspecified; R71.8 Other abnormality of red blood cells
CPT/HCPCS: 36415; 80053; 80061; 82728; 83540; 83550; 84153; 84466; 85025; G0103